=== PATIENT | male | born 1975 | race African-American/Black ===

== ENCOUNTER 2017-08-07 09:20 | Observation (INO) | payer BC ==
[~2017-08-07] VITALS: Ht 180.3 cm; Wt 72.6 kg
--- NOTE | ~2017-08-07 | EEG ---
[facility] [place] [address] [place] [address] ELECTROENCEPHALOGRAM Name: MACY COKER V Room #: 424-P [facility] M.RAbdelrahman#: [id number] Admission: 08/07/17 Attend Phys: Brandon Cleary MD Discharge: Date of : 71 Report #: [id number] THIS REPORT FOR: //name// CC: Brandon Allen DATE OF SERVICE: 08/07/2017 This patient is being evaluated for the possibility of seizure. EEG was done by placing the electrodes by standard 10/20 system of electrode placement. Both referential and sequential montages were used for recording. Virtually the whole EEG is full of epileptiform activity or postictal phenomenon, only very small portion of the EEG is there where background activity is there and it does appear to be about 9 Hz and 40 microvolts. Photic stimulation is unremarkable. IMPRESSION: This is a severely abnormal EEG because virtually all the EEG is full of epileptiform activity. That will be consistent with the diagnosis of seizure disorder, but the possibility of electrographic status epilepticus should be considered. This patient's finding was called to Dr. Mcmahon, who indicated that she has already looked at the patient's EEG. Thank you very much for this referral. By: 190 19 Oh Nix MD /nt
[2017-08-07 09:22] VITALS: BP 140/87
[2017-08-07 09:45] LABS: HEMATOCRIT 48.2 % (42.0-52.0); HEMOGLOBIN 15.8 gm/dL (14.0-18.0); MCH 28.4 pg (26.0-34.0); MCHC 32.9 g/dL (28.0-37.0); MCV 86.5 fL (80.0-100.0); PLATELET COUNT 200 thou/uL (150-400); RBC 5.57 mil/uL (4.50-6.00); RDW 13.6 % (10.5-14.5); WBC 6.7 thou/uL (4.0-11.0)
[2017-08-07 09:46] LABS: MANUAL DIFF YES
[2017-08-07 09:48] LABS: CALCIUM 9.1 mg/dL (8.5-10.1); CREATININE 1.1 mg/dL (0.7-1.3)
[2017-08-07] MEDS ORDERED: AMITRIPTYLINE H10 M3 PO (09:53)
[2017-08-07] MEDS ORDERED: ZOLOFT25 MG PO (09:53)
[2017-08-07] MEDS ORDERED: SONATA5 M1 PO (09:54)
[2017-08-07 10:16] LABS: ABSOLUTE NEUTROPHILS 3.1 thou/uL (1.4-8.2); PLATELET ESTIMATE NORMAL; TOTAL CELL COUNT 100
[2017-08-07 10:56] VITALS: BP 120/73
[2017-08-07 12:15] VITALS: BP 111/69
[2017-08-07 12:30] VITALS: BP 114/84
[2017-08-07 15:35] LABS: TSH 1.164 uIU/mL (0.358-3.740)
[2017-08-07 16:01] VITALS: BP 117/77
[2017-08-07 16:12] LABS: URINE BILIRUBIN NEGATIVE (Negative); URINE BLOOD TRACE (Negative); URINE COLOR YELLOW; URINE GLUCOSE-RANDOM* NEGATIVE (Negative); URINE KETONES NEGATIVE (Negative); URINE NITRITE NEGATIVE (Negative); URINE PROTEIN (DIPSTICK) TRACE (Negative); URINE SPECIFIC GRAVITY 1.025 (1.003-1.035); URINE UROBILINOGEN 0.2 E.U./dl (0.2-1.0)
[2017-08-07 16:45] LABS: AMP/METHAMP Negative (Negative); BARBITURATES Negative (Negative); BENZODIAZEPINES Negative (Negative); COCAINE Negative (Negative); METHADONE Negative (Negative); OPIATES POSITIVE (Negative); PCP Negative (Negative); THC Negative (Negative)
[2017-08-07 21:30] VITALS: BP 128/89
[2017-08-08 00:07] VITALS: BP 126/93
[2017-08-08 03:20] VITALS: BP 123/93
[2017-08-08 03:51] LABS: HEMATOCRIT 40.9 % (42.0-52.0); MCHC 32.7 g/dL (28.0-37.0); MCV 85.8 fL (80.0-100.0); RBC 4.77 mil/uL (4.50-6.00); RDW 13.7 % (10.5-14.5); WBC 4.7 thou/uL (4.0-11.0)
[2017-08-08 03:54] LABS: HEMOGLOBIN 13.4 gm/dL (14.0-18.0)
[2017-08-08 04:09] LABS: ALBUMIN 3.2 g/dL (3.4-5.0); CALCIUM 7.9 mg/dL (8.5-10.1); CREATININE 0.9 mg/dL (0.7-1.3); POTASSIUM 3.7 mmol/L (3.5-5.1); TOTAL BILIRUBIN 0.3 mg/dL (<0.1-1.0); TOTAL PROTEIN 6.2 g/dL (6.4-8.2)
[2017-08-08 07:20] VITALS: BP 118/80
[2017-08-08] MEDS ORDERED: KEPPRA 500 MG500 M2 PO (11:00)
[2017-08-08 11:04] VITALS: BP 118/80
[2017-08-08 11:46] VITALS: BP 118/80
== END 2017-08-08 12:00 | disposition home or self-care (01) ==
LOC: ER 09:20 → EROBS 11:18 → 4E 12:30
PROVIDERS: Hospitalist; Nurse Practitioner; Psychiatry & Neurology Neurology
DX: R56.9 Unspecified convulsions (principal); F17.210 Nicotine dependence, cigarettes, uncomplicated

== ENCOUNTER 2021-06-04 15:48 | Emergency (ER) | payer BC, OTHER ==
[~2021-06-04] VITALS: Ht 180.3 cm; Wt 79.4 kg
[~2021-06-04 15:48] MED LIST: AMITRIPTYLINE H10 M3 PO; KEPPRA 500 MG500 M2 PO; SONATA5 M1 PO; ZOLOFT25 MG PO
[2021-06-04] MEDS ORDERED: TEMAZEPAM30 MG PO (16:33)
[2021-06-04 16:40] LABS: ABSOLUTE NEUTROPHILS 3.1 thou/uL (1.4-8.2); BASOPHILS 0.7 % (0.0-2.0); HEMATOCRIT 40.5 % (42.0-52.0); HEMOGLOBIN 13.4 gm/dL (14.0-18.0); LYMPHOCYTES 33.1 % (24.0-44.0); MCH 28.5 pg (26.0-34.0); MCHC 33.1 g/dL (28.0-37.0); MCV 86.1 fL (80.0-100.0); PLATELET COUNT 194 thou/uL (150-400); POLYS 56.2 % (36.0-66.0); RDW 13.9 % (10.5-14.5); WBC 5.6 thou/uL (4.0-11.0)
[2021-06-04 17:08] LABS: CREATININE 0.9 mg/dL (0.7-1.3)
[2021-06-04 17:10] LABS: POTASSIUM 4.4 mmol/L (3.5-5.1)
[2021-06-04] MEDS ORDERED: NAPROSYN500 M1 PO (17:21)
[2021-06-04 17:57] VITALS: BP 160/90
== END 2021-06-04 17:58 | disposition home or self-care (01) ==
LOC: ER 15:48
PROVIDERS: Emergency Medicine
DX: R10.32 Left lower quadrant pain (principal); M54.5 Low back pain; I25.2 Old myocardial infarction